=== PATIENT | female | born 1965 | race Two or more races ===

== ENCOUNTER 2024-05-08 11:37 | Emergency (ER) | payer MEDICAID, SELFPAY ==
[2024-05-08 11:38] VITALS: BMI 24.2
[2024-05-08 11:48] VITALS: BP 114/74; PULSE 72; RESP 19; TEMP 36.3; O2SAT 98
--- NOTE | 2024-05-08 12:14 | EDNOTE_ITS ---
Upper Respiratory Inf. RME/HPI General Chief Complaint: Flu Like Symptoms Stated Complaint: SORE THROAT, BODY ACHE AND FEVER X YESTERDAY Time Seen by Provider: 05/08/24 11:51 Arrival date/time: 05/08/24 11:37 59-year-old female presents to the emergency department today complains of sore throat patient reports has bodyaches and fever since yesterday Limitations: no limitations Related Data Previous Rx's ?Medication ?Instructions ?Recorded amoxicillin 875 mg-potassium 1 tab PO BID 7 days #14 tabs 05/08/24 clavulanate 125 mg tablet ibuprofen 600 mg tablet 600 mg PO Q6H #30 tabs 05/08/24 Allergies Allergy/AdvReac Type Severity Reaction Status Date / Time No Known Allergies Allergy Verified 05/08/24 11:40 Review of Systems Review of Systems Systems Reviewed: All systems reviewed, normal except as documented Constitutional Constitutional: Reports system reviewed and no additional complaints, except as documented, Denies fever(s) and Denies headache(s) Eyes Eyes: Reports system reviewed and no additional complaints, except as documented and Denies blurry vision ENT Ears, Nose, Mouth, and Throat: Reports system reviewed and no additional compla ints, except as documented, Reports facial pain, Denies headache(s), Reports nasal congestion, Reports nasal discharge and Reports sore throat Cardiovascular Cardiovascular: Reports system reviewed and no additional complaints, except as documented, Denies chest pain and Denies dyspnea Respiratory Respiratory: Reports system reviewed and no additional complaints, except as documented, Denies chest congestion, Denies cough and Denies dyspnea Gastrointestinal Gastrointestinal: Reports system reviewed and no additional complaints, except as documented and Denies abdominal pain Integumentary/Breasts Skin/Breast: Reports system reviewed and no additional complaints, except as documented and Denies rash Neurologic Neurologic: Reports system reviewed and no additional complaints, except as documented, Reports as per HPI and Denies headache(s) Past Medical History Social History SMOKING STATUS: Former smoker ED Exam General Limitations: Present no limitations General appearance: Present alert and in no apparent distress Head Head exam: Present atraumatic Eye Eye exam: Present normal appearance, PERRL and EOMI ENT ENT exam: Present normal exam, normal oropharynx and mucous membranes moist Neck Neck exam: Present normal inspection, full ROM and trachea midline Chest Chest inspection: Present normal inspection and symmetric chest wall rise Respiratory Respiratory exam: Present normal lung sounds bilaterally Cardiovascular Cardiovascular exam: Present regular rate, normal rhythm and normal heart sounds Abdominal Exam Abdominal exam: Present soft and normal bowel sounds Extremities Exam Extremities exam: Present normal inspection and full ROM Back Exam Back exam: Present normal inspection and full ROM Neurological Exam Neurological exam: Present alert, oriented X3 and CN II-XII intact Psychiatric Psychiatric exam: Present normal affect and normal mood Skin Skin exam: Present warm, dry, intact and normal color Course Quality Measures none Orders Category Date Time Status Amoxicillin/Pot Clav 875 [Augmentin 875] Med 05/08/24 12:06 Discontinued 1 tab PO X1 ONE Ibuprofen Tab [Motrin Tab] Med 05/08/24 12:06 Discontinued 600 mg PO X1 ONE Vital Signs Vital signs: Vital Signs Temperature 97.4 F 05/08/24 11:48 Pulse Rate 72 05/08/24 11:48 Respiratory Rate 19 05/08/24 11:48 Blood Pressure 114/74 05/08/24 11:48 Pulse Oximetry (%) 98 05/08/24 11:48 Oxygen Delivery Method Room Air 05/08/24 11:48 O2 saturation 98% room air within normal limits Upper Respiratory Infection MDM Narrative MDM Narrative:: 59-year-old female presents to the emergency department today complains of sore throat patient reports has bodyaches and fever since yesterday On exam patient does not appear ill or toxic patient well-appearing acute distress Symptoms consistent with pharyngitis Patient given course of antibiotics and pain medication Patient discharged home in no distress to follow-up with primary care doctor in the next 24 to 48 hours and for any worsening symptoms to return to the ER immediately Patient data External records reviewed:: [facility] previous records Clinical information provided by:: patient Social determinants that could affect healthcare access:: none Patient has the following chronic illnesses:: See history How is presenting disease/condition affected by chronic disease/condition?: uneffected by Evaluation data The following diagnostics were reviewed and interpreted by me:: other (specify) (N/A) Lab and/or radiology exams considered but not ordered:: Consider not ordered Interpretation Summary: N/A Medications / Prescriptions Medications or Prescriptions considered but not ordered:: Given Medication administrations:: Medication Administration History Discontinued Medications Amoxicillin/Clavulanate Potassium (Amoxicillin/Pot Clav 875 Tablet) 1 tab PO X1 ONE Stop: 05/08/24 12:07 Last Admin: 05/08/24 12:28 Dose: 1 tab Documented By: PIERRE Ibuprofen (Ibuprofen Tab 600 Mg Tablet) 600 mg PO X1 ONE Stop: 05/08/24 12:07 Last Admin: 05/08/24 12:28 Dose: 600 mg Documented By: PIERRE Given Consultations Consultation(s) initiated? (list below): No Diagnosis Upper Respiratory Differential Diagnosis: upper respiratory infection, sinusitis, viral infection and bronchitis Most likely diagnosis given after review of the tests above:: URI Admission Indicated Admission indicated?: not indicated Admission Request Was there a request for admission?: No Disposition Plan Disposition Plan: Discharge Discharge Attestation Discharge Attestation: The patient and all family members were given an opportunity to ask questions and understood the discharge instructions. Discharge instructions specifically effects, indications for sooner follow up or return to the emergency department, and the expected course of current diagnosis. Patient condition: Stable Discharge Plan Plan Patient Disposition: HOME (Self Care) Disposition Comment: Stable Prescriptions/Referrals Prescriptions/Med Rec: New ibuprofen 600 mg tablet 600 mg PO Q6H Qty: 30 0RF amoxicillin-pot clavulanate 875-125 mg tablet 1 tab PO BID 7 Days Qty: 14 0RF Problem List Clinical Impression: Pharyngitis Patient/Caregiver Discharge Instructions Education Materials: Self-Care for Sore Throats Additional Instructions: Please follow up with your primary care doctor in the next 24-48hrs for any worsening symptoms return here immediately Print Language: Tongan Stand Alone Forms: Merna Award Info., Patient Portal Info Letter DARELL/LILA Supervising Physician DARELL/LILA Supervising Physician: Dr. Rodriguez
[2024-05-08] MEDS: IBUPROFEN TAB 600 MG TABLET PO (12:28)
[2024-05-08] MEDS: AMOXICILLIN/POT CLAV 875 TABLET 1 TAB PO (12:28)
== END 2024-05-08 19:26 | disposition home or self-care (01) ==
PROVIDERS: Emergency Provider Emergency Medicine; PCP Nurse Practitioner Family
DX: J02.9 Acute pharyngitis, unspecified (principal); Z87.891 Personal history of nicotine dependence
CPT/HCPCS: 99282; A9270

== ENCOUNTER 2024-10-12 15:18 | Emergency (ER) | payer MEDICAID, SELFPAY ==
[2024-10-12 15:26] VITALS: BP 117/78; PULSE 69; RESP 16; TEMP 36.6; O2SAT 97
--- NOTE | 2024-10-12 15:30 | PD.EDFMALE ---
ED Female Urogenital RME/HPI General Chief complaint: Urogenital-Female Stated complaint: PAINFUL URINATION WITH REDNESS TO GENITAL AREA Time Seen by Provider: 10/12/24 15:27 Arrival date/time: 10/12/24 15:18 RME / HPI RME / HPI Narrative: 72-year-old female patient with history of diabetes and high cholesterol presents emergency department with complaint of painful urination and redness to the genitalia for the past 3 days. Patient states pain is worse with urination. She denies fever or chills she denies pelvic pain she denies any alleviating factors. She denies possibility of an STD. She denies vaginal discharge. Related Data Previous Rx's ?Medication ?Instructions ?Recorded ibuprofen 600 mg tablet 600 mg PO Q6H #30 tabs 05/08/24 cephalexin 500 mg capsule 500 mg PO Q8H 10 days #30 caps 10/12/24 fluconazole 200 mg tablet 200 mg PO Q3D 10 days #4 tabs 10/12/24 (Diflucan) phenazopyridine 200 mg tablet 200 mg PO TID 3 days #9 tabs 10/12/24 (Pyridium) Allergies Allergy/AdvReac Type Severity Reaction Status Date / Time No Known Allergies Allergy Verified 10/12/24 15:21 Review of Systems Review of Systems Systems Reviewed: All systems reviewed, normal except as documented Constitutional Constitutional: Reports system reviewed and no additional complaints, except as documented ENT Ears, Nose, Mouth, and Throat: Reports system reviewed and no additional complaints, except as documented Cardiovascular Cardiovascular: Reports system reviewed and no additional complaints, except as documented Gastrointestinal Gastrointestinal: Reports system reviewed and no additional complaints, except as documented Genitourinary Genitourinary: Reports dysuria, Denies flank pain and Denies genital lesions Musculoskeletal Musculoskeletal: Reports system reviewed and no additional complaints, except as documented Psychiatric Psychiatric: Reports system reviewed and no additional complaints, except as documented ED Exam General General appearance: Present alert and in no apparent distress Head Head exam: Present atraumatic and normocephalic ENT ENT exam: Present normal exam and normal oropharynx Chest Chest inspection: Present normal inspection and symmetric chest wall rise Cardiovascular Cardiovascular exam: Present regular rate and normal rhythm External exam: Present other (deferred) Extremities Exam Extremities exam: Present normal inspection and full ROM Neurological Exam Neurological exam: Present alert and oriented X3 Psychiatric Psychiatric exam: Present normal affect and normal mood Course Quality Measures none Orders Category Date Time Status Urinalysis, C/S if Indicated Stat Lab 10/12/24 15:30 Completed Vital Signs Vital signs: Vital Signs Temperature 97.8 F 10/12/24 15:26 Pulse Rate 69 10/12/24 15:26 Respiratory Rate 16 10/12/24 15:26 Blood Pressure 117/78 10/12/24 15:26 Pulse Oximetry (%) 97 10/12/24 15:26 Oxygen Delivery Method Room Air 10/12/24 15:26 Urogenital - Female MDM Narrative MDM Narrative:: 59-year-old female patient with history of diabetes and high cholesterol presents emergency department complaint of urination UA indicates UTI patient will be DC'd home with oral antibiotics and Diflucan for possible vaginitis patient is stable to discharge home patient remained afebrile nontoxic-appearing throughout ED stay Patient data External records reviewed:: None Clinical information provided by:: patient Social determinants that could affect healthcare access:: none Patient has the following chronic illnesses:: DM, Dyslipidemia How is presenting disease/condition affected by chronic disease/condition?: exacerbated by Evaluation data The following diagnostics were reviewed and interpreted by me:: lab results Lab and/or radiology exams considered but not ordered:: lab considered and ordered Interpretation Summary: + UTI Medications / Prescriptions Medications or Prescriptions considered but not ordered:: Prescription considered and ordered Medication administrations:: na Consultations Consultation(s) initiated? (list below): No Diagnosis Urogenital Female Differential Diagnosis: urinary tract infection, bacterial vaginosis, trichomoniasis, cervicitis, ovarian cyst, vaginitis and cystitis Most likely diagnosis given after review of the tests above:: UTI, Vaginitis Admission Indicated Admission indicated?: not indicated Admission Request Was there a request for admission?: No Disposition Plan Disposition Plan: Discharge Discharge Attestation Discharge Attestation: The patient and all family members were given an opportunity to ask questions and understood the discharge instructions. Discharge instructions specifically effects, indications for sooner follow up or return to the emergency department, and the expected course of current diagnosis. Patient condition: Stable Discharge Plan Plan Patient Disposition: HOME (Self Care) Prescriptions/Referrals Prescriptions/Med Rec: New phenazopyridine [Pyridium] 200 mg tablet 200 mg PO TID 3 Days Qty: 9 0RF cephalexin 500 mg capsule 500 mg PO Q8H 10 Days Qty: 30 0RF fluconazole [Diflucan] 200 mg tablet 200 mg PO Q3D 10 Days Qty: 4 0RF No Action ibuprofen 600 mg tablet 600 mg PO Q6H Qty: 30 0RF Problem List Clinical Impression: Urinary tract infection, Vaginitis Patient/Caregiver Discharge Instructions Education Materials: Preventing Vaginitis, Urinary Tract Infections in Women Print Language: Gambian Stand Alone Forms: Merna Award Info., Patient Portal Info Letter
[2024-10-12 15:44] LABS: Collection Type, Urine Clean Catch
[2024-10-12 16:02] LABS: Bilirubin,Urine Negative (Negative); Blood,Urine Trace (Negative); Clarity,Urine Clear (Clear/Hazy); Color,Urine Lt-Yellow (Lt Yel-Yel); Culture Indicated,Urine Not Indicated; Glucose, Urine Negative (Negative); Ketones,Urine Negative (Negative); Leukocyte Esterase,Urine Positive (Negative); Nitrite,Urine Negative (Negative); PH,Urine 6.5 (5.0-7.0); Protein,Urine 1+ (Neg - Trace); RBC,Urine 1 /hpf (0-3); Specific Gravity,Urine 1.025 (1.001-1.035); Squamous Epithelial Cell,Urine 7 /hpf (0-5); Urobilinogen,Urine Negative mg/dL (0.0-1.0); WBC,Urine 8 /hpf (0-5)
== END 2024-10-12 16:45 | disposition home or self-care (01) ==
PROVIDERS: Physician Assistant; Emergency Provider Emergency Medicine
DX: N39.0 Urinary tract infection, site not specified (principal); N76.0 Acute vaginitis; E11.9 Type 2 diabetes mellitus without complications; E78.00 Pure hypercholesterolemia, unspecified
CPT/HCPCS: 81001; 99283

== ENCOUNTER 2024-11-23 13:43 | Emergency (ER) | payer MEDICAID, SELFPAY ==
[2024-11-23 14:00] VITALS: BP 128/77; PULSE 72; RESP 18; TEMP 36.8; O2SAT 95; BMI 31.9
--- NOTE | 2024-11-23 14:04 | PD.EDURI ---
Upper Respiratory Inf. RME/HPI General Chief Complaint: Headache Stated Complaint: HEADACHE, NON-STOP RUNNY NOSE, SORE THROAT Time Seen by Provider: 11/23/24 14:01 Arrival date/time: 11/23/24 13:43 Limitations: no limitations RME / HPI RME / HPI Narrative: 59-year-old female with a history of hypertension diabetes is here today with a 3-day history of runny nose, congestion, sore throat, mild cough. She Dors is a mild headache and malaise. No fevers. No vomiting or diarrhea. She has no other acute complaints Related Data Previous Rx's ?Medication ?Instructions ?Recorded ibuprofen 600 mg tablet 600 mg PO Q6H #30 tabs 05/08/24 Allergies Allergy/AdvReac Type Severity Reaction Status Date / Time No Known Allergies Allergy Verified 11/23/24 13:50 Review of Systems Review of Systems Systems Reviewed: All systems reviewed, normal except as documented ED Exam General Limitations: Present no limitations General appearance: Present alert and in no apparent distress Head Head exam: Present atraumatic Eye Eye exam: Present normal appearance, PERRL and EOMI ENT ENT exam: Present normal exam, normal oropharynx and mucous membranes moist Neck Neck exam: Present normal inspection, full ROM and trachea midline Chest Chest inspection: Present normal inspection and symmetric chest wall rise Respiratory Respiratory exam: Present normal lung sounds bilaterally Cardiovascular Cardiovascular exam: Present regular rate, normal rhythm and normal heart sounds Abdominal Exam Abdominal exam: Present soft and normal bowel sounds Extremities Exam Extremities exam: Present normal inspection and full ROM Back Exam Back exam: Present normal inspection and full ROM Neurological Exam Neurological exam: Present alert, oriented X3 and CN II-XII intact Psychiatric Psychiatric exam: Present normal affect and normal mood Skin Skin exam: Present warm, dry, intact and normal color Course Quality Measures none Orders Category Date Time Status Bedside COVID-19 Antigen Test NOW Care 11/23/24 14:03 Active Bedside Influenza A&B Antigen Test NOW Care 11/23/24 14:04 Completed Vital Signs Vital signs: Vital Signs Temperature 98.3 F 11/23/24 14:00 Pulse Rate 72 11/23/24 14:00 Respiratory Rate 18 11/23/24 14:00 Blood Pressure 128/77 11/23/24 14:00 Pulse Oximetry (%) 95 11/23/24 14:00 Oxygen Delivery Method Room Air 11/23/24 14:00 Upper Respiratory Infection Patient data External records reviewed:: None Clinical information provided by:: patient Social determinants that could affect healthcare access:: none Patient has the following chronic illnesses:: Diabetes and hypertension How is presenting disease/condition affected by chronic disease/condition?: uneffected by Evaluation data The following diagnostics were reviewed and interpreted by me:: lab results Lab and/or radiology exams considered but not ordered:: Chest x-ray Interpretation Summary: Viral screens are negative Medications / Prescriptions Medications or Prescriptions considered but not ordered:: Ibuprofen Medication administrations:: Not applicable Consultations Consultation(s) initiated? (list below): No Diagnosis Upper Respiratory Differential Diagnosis: upper respiratory infection Most likely diagnosis given after review of the tests above:: Viral respiratory infection Admission Indicated Admission indicated?: not indicated Admission Request Was there a request for admission?: No Disposition Plan Disposition Plan: Discharge Discharge Attestation Discharge Attestation: The patient and all family members were given an opportunity to ask questions and understood the discharge instructions. Discharge instructions specifically effects, indications for sooner follow up or return to the emergency department, and the expected course of current diagnosis. Patient condition: Stable Discharge Plan Plan Patient Disposition: HOME (Self Care) Patient condition on transfer: Stable Prescriptions/Referrals Prescriptions/Med Rec: No Action ibuprofen 600 mg tablet 600 mg PO Q6H Qty: 30 0RF Problem List Clinical Impression: Upper respiratory infection, viral Patient/Caregiver Discharge Instructions Education Materials: ED URI, Viral W/ Wheezing (Adult) Additional Instructions: Maintain oral hydration. Use Tylenol and ibuprofen as needed for symptomatic relief. Follow-up with your primary doctor as needed. Return to emergency room as needed for any worsening or emergent changes. Print Language: Andorran Stand Alone Forms: Merna Award Info., Patient Portal Info Letter
== END 2024-11-23 14:31 | disposition home or self-care (01) ==
LOC: SERX 14:26
PROVIDERS: Emergency Provider Family Medicine
DX: J06.9 Acute upper respiratory infection, unspecified (principal)
CPT/HCPCS: 87400; 87811; 99282

== ENCOUNTER → 2025-02-04 | Outpatient (CLI) | payer MEDICAID, SELFPAY ==
--- NOTE | 2025-02-04 15:45 | XR_ITS ---
Examination: Screening digital mammography, bilateral Computer aided detection 3-D breast Tomosynthesis, bilateral Date and time of exam: 02/04/2025, 3:00 PM Comparisons: September 2023, December 2023 Indications: Screening Technique: Nonmagnified MLO, CC views of the breasts to been obtained, reconstructed from 3-D Tomosynthesis images. R2 computer aided detection program utilized for evaluation of suspicious masses and/or abnormal calcifications. 3-D Tomosynthesis images obtained. Technologist: Findings: The breasts are heterogeneously dense, which may obscure small masses. No evidence of abnormal masses or suspicious calcifications. Impression: BI-RADS category 1: Negative findings (within normal) Recommend 1 year follow-up mammogram
== END | disposition home or self-care (01) ==
DX: Z12.31 Encounter for screening mammogram for malignant neoplasm of breast (principal); R92.313 Mammographic fatty tissue density, bilateral breasts
CPT/HCPCS: 77063; 77067